=== PATIENT | female | born 1985 | race Two or more races ===

== ENCOUNTER 2017-08-14 23:08 | Emergency (ER) | payer MEDICAID ==
[~2017-08-14] VITALS: Ht 160 cm; Wt 117.9 kg
[2017-08-14 23:15] VITALS: BP 111/72
[2017-08-15] MEDS ORDERED: HYDROcodone-ACET 10/325MG TAB PO ONE
[2017-08-15] MEDS ORDERED: KETOROLAC TROMETH 60MG/2ML VIAL IM ONE ×2 (01:15)
== END 2017-08-15 01:01 | disposition home or self-care (01) ==
LOC: ER 23:11 → EDBD 23:11 → ER 08-15 01:01
DX: S20.221A Contusion of right back wall of thorax, initial encounter (principal); Z90.49 Acquired absence of other specified parts of digestive tract; W10.8XXA Fall (on) (from) other stairs and steps, initial encounter; Y93.89 Activity, other specified; Y92.89 Other specified places as the place of occurrence of the external cause; Y99.8 Other external cause status
CPT/HCPCS: 36415; 74176; 84702; 96372; 99285; J1885